=== PATIENT | male | born 1955 | race African-American/Black ===

== ENCOUNTER 2017-05-10 18:26 | Emergency (ER) | payer OTHER ==
[~2017-05-10] VITALS: Ht 177.8 cm; Wt 104.3 kg
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
[2017-05-10] MEDS ORDERED: IBUPROFEN 600 MG TABLET. PO ONE (19:30)
[2017-05-10] MEDS ORDERED: ACETAMINOPHEN 500 MG TABLET PO ONE (19:30)
[2017-05-10] MEDS ORDERED: LISINOPRIL 5 MG TABLET. PO ONE (19:30)
[2017-05-10 19:35] VITALS: BP 149/106
== END 2017-05-10 19:38 | disposition home or self-care (01) ==
LOC: ER 18:26
DX: R51 Headache (principal); V89.2XXA Person injured in unspecified motor-vehicle accident, traffic, initial encounter; Y93.89 Activity, other specified; Y99.8 Other external cause status; Y92.89 Other specified places as the place of occurrence of the external cause
CPT/HCPCS: 99284